=== PATIENT | male | born 1955 | race Caucasian/White ===

== ENCOUNTER 2019-09-24 17:16 | Inpatient (IN) | payer MEDICARE, MEDICAID ==
[2019-09-24 17:40] VITALS: BP 145/83
[2019-09-24] MEDS ORDERED: Maalox 30 mL Cup PO PRN (18:36)
[2019-09-24] MEDS ORDERED: Magnesium Hydroxide (MOM) 30 mL UDC PO PRN (18:36)
[2019-09-25] MEDS: Multivitamin Tab PO SCH (09:12)
--- NOTE | 2019-09-25 15:38 | History and Physical ---
History of Present Illness - HPI Chief Complaint: Suicida Ideation HPI: Admitted from [facility]. Admitted for Suicidal Ideation and 5150 Hold. Vital Signs: Last Vital Signs Temp 98.4 F 09/25/19 14:00 Pulse 88 09/25/19 14:00 Resp 20 09/25/19 14:00 BP 123/72 09/25/19 14:00 Pulse Ox 93 09/25/19 14:00 Past Medical History Cardiovascular: Report: CAD, HTN Pulmonary: Report: No Pertinent Hx [employer]: Report: Other (Parkinson) GI: Report: No Pertinent Hx Psych: Report: Depression Musculoskeletal: Report: No Pertinent Hx Rheumatologic: Report: No pertinent Hx Infectious Disease: Report: No Pertinent Hx Renal/: Report: No Pertinent Hx Endocrine: Report: No Pertinent Hx Dermatology: Report: No Pertinent Hx - Past Surgical History Past Surgical History: Other (PTCA) Family Medical History - Family Member Mother History Unknown: Yes Social History Smoke: 2 packs per day Alcohol: Other (Quit) Drugs: Other (Quit) Lives: With Family - Allergies Allergies/Adverse Reactions: Allergies Allergy/AdvReac Type Severity Reaction Status Date / Time No Known Allergies Allergy Unverified 09/24/19 17:41 Review of Systems - Review of Systems Constitutional: Report: No Significant Eyes: Report: No Significant ENT: Report: No Significant Respiratory: Report: No Significant Cardiovascular: Report: Chest Pain Gastrointestinal: Report: No Significant Genitourinary: Report: No Significant Musculoskeletal: Report: No Significant Skin: Report: No Significant Neurological: Report: Weakness Physical Exam - Physical Exam HEENT: Report: Ears Nose Throat within normal limits Neck: Report: Within normal limits Cardiovascular Systems: Report: Regular, Rate and Rhythm, no murmurs noted Respiratory: Report: Clear to Auscultation of lung oliveira, Breath Sounds are within normal limits Abdomen: Report: Non-tender to palpation, Bowel Sounds are within normal limits Back: Report: Inspection of back is within normal limits. Extremities: Report: Non-tender to palpation., Patient had full range of motion , No pedal edema was noted on inspection Skin: Report: Color of skin is within normal limits, Warm, Dry, No Rashes noted of the skin Neuro/Psych: Report: A+Ox3, CN II-XII intact, Depressed affect, No sensory deficit - Lab Results All Lab Results last 24 hours: Laboratory Results - last 24 hr 09/24/19 18:08 POC Glucose 98 - Assessment Assessment: Suicidal Ideation 5150 Hold HTN CAD Parkinson's S/P PTCA Tobacco Abuse H/O Alcohol Abuse' H/O Drug Abuse - Plan Plan: * Continue medications from [facility] * Obtain labs * Psych Consult Cranial Nerve Assessment - CRANIAL NERVES alcohol swab:: Yes Distinguishes movements in peripheral field.:: Yes up, down, sideways:: Yes on forehead, cheeks and chin, chews symmetrically:: Yes FACIAL VII: upper: Frowns Symmetrically:: Yes FACIAL VII: Lower: Smiles Symmetrically:: Yes both ears:: Yes GLOSS-PHARYNGEAL IX: Has gag reflex:: Yes VAGUS X: Can make guttural sounds:: Yes ACCESSORY XI: Shrugs shoulders symmetrically:: Yes tremors or fasciculation's:: Yes - MOTOR spasticity, cogwheel, atrophy, tremor, asterixis, other: Yes (Normal) - COORDINATION Finger to nose, heel to ohara, RODRIGO, gait, Romberg: Yes - SENSORY signs, Brudzinski, Kernig, neck rigidity:: Yes (Normal) - REFLEXES Brachioradials Right:: Yes Brachioradials Left:: Yes Biceps Right:: Yes Biceps Left:: Yes Triceps Right:: Yes Triceps Left:: Yes Knee Right:: Yes Knee Left:: Yes Ankle Right:: Yes Ankle Left:: Yes Babinski Right:: No Babinski Left:: No
--- NOTE | 2019-09-25 17:32 | Consultation ---
DATE OF CONSULTATION: 09/25/2019 IDENTIFYING DATA: A 64-year-old male. HISTORY OF PRESENT ILLNESS: A 64-year-old male brought in here on a 5150 for severe depression. He has been hearing voices telling him to run into traffic. He reports noncompliance of medications, recently stressors upon the pandemic, become homeless, unable to find a safe place. He has been depressed and sleeping with thought about hurting himself. PAST MEDICAL HISTORY: Hypertension, Parkinson's. SIGNIFICANT FAMILY PSYCHIATRIC HISTORY: None. SOCIAL HISTORY: Reports occasional alcohol, street drugs, but does not report any recent drug use. ALLERGIES TO MEDICATIONS: NKDA. HOME MEDICATIONS: None. ONSET OF ILLNESS: Early 20s. LEGAL HISTORY: Denied. STRENGTHS: Good motivation. WEAKNESSES: Poor coping skills. ESTIMATED LENGTH OF STAY: Between 5-10 days. MENTAL STATUS EXAMINATION: Calm and cooperative, depressed, melancholic with suicidal ideation to monitor traffic, auditory hallucinations to hurt himself. LABS: Reviewed. Poor insight, poor judgment, poor impulse control. U-tox negative. ASSESSMENT AND PLAN: Major depressive disorder with psychosis severe, distraught throughout the traffic. We will augment with Lexapro and Abilify. PRIMARY DIAGNOSIS: Major depressive disorder with psychosis. SECONDARY DIAGNOSIS: History of substance use disorder. MEDICAL DIAGNOSIS: Per medical team. PLAN: 1. Continue with hospitalization. 2. Start Lexapro. 3. Continue with the Abilify. 4. Both individual and group therapy. 5. Obtain more collateral baseline information. JOB# [id number]
[2019-09-25] MEDS: Escitalopram Oxalate 5 mg Tab PO SCH (21:08)
[2019-09-26] MEDS: Multivitamin Tab PO SCH (08:39)
--- NOTE | 2019-09-26 15:23 | Progress Notes ---
DATE: 09/26/2019 SUBJECTIVE: On [id number] evaluation, tearful and pushing to hurt himself. MENTAL STATUS EXAMINATION: Tearful, command type auditory hallucinations. ASSESSMENT AND PLAN: Major depressive disorder with psychosis. We will continue with the recent augmentation of Abilify 10 mg. [facility]# [id number]
[2019-09-26] MEDS: Escitalopram Oxalate 5 mg Tab PO SCH (20:08)
[2019-09-27] MEDS: Multivitamin Tab PO SCH (08:37)
--- NOTE | 2019-09-27 14:50 | Internal Medicine Prog Note ---
Internal Medicine Subjective - Subjective Service Date: 09/27/19 Patient seen and examined:: without staff Patient is:: awake Per staff patient has:: no adverse event, no episodes of fall (f) Internal Medicine Objective - Results Recent Labs: Laboratory Last Values POC Glucose 98 MG/DL (70 - 105) 09/24/19 18:08 - Physical Exam Vitals and I&O: Vital Signs Temp 97.9 F 09/26/19 20:14 Pulse 98 09/26/19 20:14 Resp 20 09/26/19 20:14 BP 156/80 09/26/19 20:14 Pulse Ox 95 09/26/19 20:14 Intake & Output 09/26/19 09/27/19 09/27/19 18:59 06:59 18:59 Intake Total 1200 240 Balance 1200 240 Intake: Oral 1200 240 Other: # Voids 4 1 # Bowel Movements 1 Active Medications: Current Medications Acetaminophen (Tylenol) 650 mg PO Q4H PRN PRN Reason: Pain (Mild 1-3) Stop: 11/23/19 18:35 Last Admin: 09/27/19 11:12 Dose: 650 mg Al Hydrox/Mg Hydrox/Simethicone (Maalox) 30 ml PO Q4HR PRN PRN Reason: GI DISTRESS Stop: 11/23/19 18:35 Aripiprazole (Abilify) 10 mg PO HS FLO; Protocol Stop: 11/25/19 20:59 Last Admin: 09/26/19 20:08 Dose: 10 mg Escitalopram Oxalate (Lexapro) 10 mg PO HS FLO; Protocol Stop: 11/26/19 20:59 Lorazepam (Ativan) 0.5 mg PO Q4HR PRN; Protocol PRN Reason: Agitation Stop: 10/24/19 18:35 Magnesium Hydroxide (Milk Of Magnesia) 30 ml PO HS PRN PRN Reason: Constipation Multivitamins/Vitamin C (Theragran) 1 tab PO DAILY FLO Stop: 11/24/19 08:59 Last Admin: 09/27/19 08:37 Dose: 1 tab Zolpidem Tartrate (Ambien) 5 mg PO HS PRN PRN Reason: Insomnia Stop: 11/23/19 20:02 Last Admin: 09/26/19 21:00 Dose: 5 mg HEENT: NC/AT, PERRLA Neck: Supple Lungs: CTAB Cardiovascular: RRR, Normal S1, Normal S2 Abdomen: soft Extremities: clear, edema Neurological: no change Internal Medicine Assmt/Plan - Assessment Assessment: 1. CAD Hx of PTCA 2. Parkinson's 3. HTN - Plan Plan: continue supportive care continue meds reviewed medical records and discussed with Bárbara
--- NOTE | 2019-09-28 04:11 | Progress Notes ---
DATE: 09/27/2019 SUBJECTIVE: Chart reviewed and the patient interviewed. Also discussed the patient's condition with the staff and reviewed records and labs. This patient still has episodes of anger and yelling and screaming. The patient also is focused on medications and on his having hypertension. The patient also is still reporting auditory hallucinations telling him to run into traffic. He also still seems to be in a depressed mood and periods of decreased yelling and screaming. The patient's gait is steady. Vital signs are stable and no new labs are available for review. MENTAL STATUS EXAMINATION: Anxious. Sad affect. Depressed mood. Thought processes mainly goal directed. He denies visual hallucinations, but admits to auditory hallucinations. Admits to suicidal ideations. ASSESSMENT: The patient is still depressed and psychotic. TREATMENT PLAN: Continue to monitor his behavior and his condition closely. Also, we will decrease Lexapro to 10 mg every day and continue Abilify 10 mg at this time. Also, continue to work on his irritability and his ineffective coping. ESTIMATED LENGTH OF STAY: 2-4 days. REASON FOR CONTINUED HOSPITAL STAY: The patient is still in a depressed mood and is still actively hallucinating and can be dangerous to self. JOB# [id number]
[2019-09-28] MEDS: Multivitamin Tab PO SCH (08:56)
--- NOTE | 2019-09-28 11:47 | Internal Medicine Prog Note ---
Internal Medicine Subjective - Subjective Service Date: 09/28/19 Patient seen and examined:: without staff Patient is:: awake Per staff patient has:: no adverse event, no episodes of fall (f) Internal Medicine Objective - Results Recent Labs: Laboratory Last Values POC Glucose 98 MG/DL (70 - 105) 09/24/19 18:08 - Physical Exam Vitals and I&O: Vital Signs Temp 97.9 F 09/26/19 20:14 Pulse 80 09/27/19 20:06 Resp 20 09/27/19 20:06 BP 132/93 09/27/19 20:06 Pulse Ox 95 09/27/19 20:06 Intake & Output 09/27/19 09/28/19 09/28/19 18:59 06:59 18:59 Intake Total 1200 420 Balance 1200 420 Intake: Oral 960 420 Other 240 Other: # Voids 3 1 # Bowel Movements 0 0 Active Medications: Current Medications Acetaminophen (Tylenol) 650 mg PO Q4H PRN PRN Reason: Pain (Mild 1-3) Stop: 11/23/19 18:35 Last Admin: 09/28/19 09:49 Dose: 650 mg Al Hydrox/Mg Hydrox/Simethicone (Maalox) 30 ml PO Q4HR PRN PRN Reason: GI DISTRESS Stop: 11/23/19 18:35 Aripiprazole (Abilify) 10 mg PO HS FLO; Protocol Stop: 11/25/19 20:59 Last Admin: 09/27/19 20:16 Dose: 10 mg Aripiprazole (Abilify) 5 mg PO DAILY FLO; Protocol Stop: 11/27/19 08:59 Last Admin: 09/28/19 08:56 Dose: 5 mg Escitalopram Oxalate (Lexapro) 10 mg PO HS FLO; Protocol Stop: 11/26/19 20:59 Last Admin: 09/27/19 20:15 Dose: 10 mg Lorazepam (Ativan) 0.5 mg PO Q4HR PRN; Protocol PRN Reason: Agitation Stop: 10/24/19 18:35 Last Admin: 09/27/19 16:24 Dose: 0.5 mg Magnesium Hydroxide (Milk Of Magnesia) 30 ml PO HS PRN PRN Reason: Constipation Multivitamins/Vitamin C (Theragran) 1 tab PO DAILY FLO Stop: 11/24/19 08:59 Last Admin: 09/28/19 08:56 Dose: 1 tab Zolpidem Tartrate (Ambien) 5 mg PO HS PRN PRN Reason: Insomnia Stop: 11/23/19 20:02 Last Admin: 09/27/19 23:00 Dose: 5 mg HEENT: NC/AT, PERRLA Neck: Supple Lungs: CTAB Cardiovascular: RRR, Normal S1, Normal S2 Abdomen: soft Extremities: clear, edema Neurological: no change Internal Medicine Assmt/Plan - Assessment Assessment: 1. CAD Hx of PTCA 2. Parkinson's 3. HTN - Plan Plan: continue supportive care continue meds reviewed medical records and discussed with Bárbara
--- NOTE | 2019-09-28 16:41 | Progress Notes ---
DATE: SUBJECTIVE: Chart was reviewed and the patient interviewed. Also discussed the patient's condition with the staff and reviewed records and labs. The patient was complaining of cold room, but at the same time when they tried to move him to a different room, he refused. The patient also was severely angry last night for unknown reason. He also is histrionic and he told nursing staff last night "I am not going to in front of you." He is still asking for more pain medications and still wants to have more pain medicine. The patient also is still having severe mood swings and easily irritable and easily agitated. He also is still complaining of pain in his left knee and asking me for more pain medications for his knee. Otherwise, the patient is taking current medications with no problems. OBJECTIVE: Gait is steady. Vital signs are stable. No new labs available for review. MENTAL STATUS EXAMINATION: Anxious. Depressed mood. Irritable at times. Denies any hallucinations or delusions. The patient seems to be preoccupied and anxious. He is also easily irritable and easily agitated. ASSESSMENT: The patient is still in irritable and angry mood. TREATMENT PLAN: We will increase Abilify to 5 mg in the morning and 10 mg at bedtime. Also, continue working on his irritability and behavioral modification. ESTIMATED LENGTH OF STAY: 4-6 days. REASON FOR CONTINUED HOSPITAL STAY: The patient is still in irritable mood and still needs close monitoring. JOB# [id number]
--- NOTE | 2019-09-29 07:56 | Progress Notes ---
DATE: 09/29/2019 SUBJECTIVE: Chart was reviewed and the patient interviewed. Also discussed the patient's condition with the staff and reviewed records and labs. The patient still have episodes of anger and irritability and resisting care. The patient also told staff that he is not taking any more psych medicine; although, he did take his Abilify and Lexapro. He is still having mood swings and still has periods of irritability and anger. Also, still seems to be actively responding. The patient also is still histrionic and has multiple somatic complaints at times. Gait is steady. Vital signs are stable and no new labs available for review. MENTAL STATUS EXAMINATION: Anxious. Depressed. Irritable mood. Disorganized thoughts. ASSESSMENT: The patient is still depressed and still needs close monitoring. TREATMENT PLAN: Continue to monitor his behavior and his condition closely. Also, continue Abilify that was increased total 50 mg every day and continue Lexapro and followup. JOB# [id number]
[2019-09-29] MEDS: Multivitamin Tab PO SCH (08:27)
--- NOTE | 2019-09-29 17:32 | Internal Medicine Prog Note ---
Internal Medicine Subjective - Subjective Service Date: 09/29/19 Patient is:: awake Per staff patient has:: no adverse event, no episodes of fall (f) Internal Medicine Objective - Results Recent Labs: Laboratory Last Values POC Glucose 98 MG/DL (70 - 105) 09/24/19 18:08 - Physical Exam Vitals and I&O: Vital Signs Temp 97.6 F 09/29/19 14:00 Pulse 88 09/29/19 14:00 Resp 20 09/29/19 14:00 BP 124/67 09/29/19 14:00 Pulse Ox 96 09/29/19 14:00 Intake & Output 09/28/19 09/29/19 09/29/19 18:59 06:59 18:59 Intake Total 1200 120 Balance 1200 120 Intake: Oral 1200 120 Other: # Voids 4 1 # Bowel Movements 1 0 Active Medications: Current Medications Acetaminophen (Tylenol) 650 mg PO Q4H PRN PRN Reason: Pain (Mild 1-3) Stop: 11/23/19 18:35 Last Admin: 09/29/19 16:47 Dose: 650 mg Al Hydrox/Mg Hydrox/Simethicone (Maalox) 30 ml PO Q4HR PRN PRN Reason: GI DISTRESS Stop: 11/23/19 18:35 Aripiprazole (Abilify) 10 mg PO HS FLO; Protocol Stop: 11/25/19 20:59 Last Admin: 09/28/19 20:41 Dose: 10 mg Aripiprazole (Abilify) 5 mg PO DAILY FLO; Protocol Stop: 11/27/19 08:59 Last Admin: 09/29/19 08:27 Dose: 5 mg Escitalopram Oxalate (Lexapro) 10 mg PO HS FLO; Protocol Stop: 11/26/19 20:59 Last Admin: 09/28/19 20:42 Dose: 10 mg Lorazepam (Ativan) 0.5 mg PO Q4HR PRN; Protocol PRN Reason: Agitation Stop: 10/24/19 18:35 Last Admin: 09/27/19 16:24 Dose: 0.5 mg Magnesium Hydroxide (Milk Of Magnesia) 30 ml PO HS PRN PRN Reason: Constipation Multivitamins/Vitamin C (Theragran) 1 tab PO DAILY FLO Stop: 11/24/19 08:59 Last Admin: 09/29/19 08:27 Dose: 1 tab Zolpidem Tartrate (Ambien) 5 mg PO HS PRN PRN Reason: Insomnia Stop: 11/23/19 20:02 Last Admin: 09/28/19 21:13 Dose: 5 mg HEENT: NC/AT, PERRLA Neck: Supple Lungs: CTAB Cardiovascular: RRR, Normal S1, Normal S2 Abdomen: soft Extremities: clear, edema Neurological: no change Internal Medicine Assmt/Plan - Assessment Assessment: 1. CAD Hx of PTCA 2. Parkinson's 3. HTN - Plan Plan: continue supportive care continue meds reviewed medical records and discussed with Bárbara Nutritional Asmnt/Malnutr-PDOC - Dietary Evaluation Malnutrition Findings (Please click <Entered> for more info): Nutritional Asmnt/Malnutrition Start: 09/28/19 11: 23 Text: Status: Complete Freq: Protocol: Document 09/28/19 13:49 MARIA A (Rec: 09/28/19 14:00 MARIA A [id number] [id number]) Nutritional Asmnt/Malnutrition Patient General Information Nutritional Screening Low Risk Diagnosis Psychosis Pertinent Medical Hx/Surgical Hx HTN, CAD, Parkinsons Subjective Information Pt is a 64-year-old male admitted on 09/23 d/t suicidal ideation. Pt is eating an estimated 88% x3days of meals Per Meal/Nutrition Activity Record. Dietary is currently providing an estimated 1900 kcals and 112 gm Pro, per Pt PO intake this is providing an estimated 1672 kcals and 98gm Pro to meet 88% kcal and 100+ % Pro needs- adequate. Visited pt in room, gathered food preferences. Anthropometrics HT: 59 WT: 189 LB (85.9 kg) BMI: 27.91 (Overweight) ABW: 167 LB (76 kg) GI/ Skin Integrity GI: WNL, Soft, Non-tender BM: 6/7 x1 I/O: 1620/Not Noted Skin: WNL, Intact Nito: 22 Diet Order: Cardiac Estimated Energy Needs: ( Geriatric, ABW) 2166-9959 kcals (25-30 kcals/ kg) 80-90 g Pro (1.0-1.2 g/kg) 4123-8059 ml (25-30 ml/kg) Current Diet Order/ Nutrition Support Cardiac Patient / S.O Can Pertinent Medications Maalox (PRN), MOM (PRN), Theragran Pertinent Labs 09/23: POC Glucose 98 09/22: K 3.5, Glucose 107, Ca 8. 0, AST 56, Hgb/Hct 10.1/31.8 Nutritional Hx/Data Height 1.75 m Height (Calculated Centimeters) 175.3 Current Weight (lbs) 85.729 kg Weight (Calculated Kilograms) 85.7 Weight (Calculated Grams) 89177.0 [place] Body Weight 160 % [place] Body Weight 118 Body Mass Index (BMI) 27.8 Weight Status Overweight GI Symptoms GI Symptoms None Last BM 09/25 x1 Difficult in: None Skin Integrity/Comment: WNL, Intact Current %PO Good (75-100%) Estimated Nutritional Goals BEE in Kcals: Adj wt of IBW Calories/Kcals/Kg 25-30 Kcals Calculated 9411-0869 Protein: Adj wt of IBW Protein g/k.0-1.2 Protein Calculated 80-90 Fluid: ml 8892-5515 ml (25-30 ml/kg) Nutritional Problem 1. Problem Problem No nutrition diagnosis at this time. Etiology N/A Signs/Symptoms: N/A Malnutrition Related to Morbid Obesity Malnutrition related to morbid obesity No Intervention/Recommendation Comments Continue Cardiac diet as tolerated. Expected Outcomes/Goals Expected Outcomes/Goals 1. PO intake to continue to meet >75% of estimated nutritional needs. 2. Monitor PO intake, wt, nutrition related labs, and skin integrity. 3. F/U as low risk in 7-10 days, 10/04-10/07.
[2019-09-30] MEDS: Multivitamin Tab PO SCH (08:32)
--- NOTE | 2019-09-30 09:08 | Progress Notes ---
DATE: SUBJECTIVE: Chart reviewed and the patient interviewed. Also discussed the patient's condition with the staff and reviewed records and labs. The patient seems to be slightly calmer this morning and he seems to be less irritable and less agitated. Also, is trying to interact slightly more. He still has mood swings and still has periods of anger, but seems to be slightly less today and for the first time the patient is showing some improvement. Otherwise, the patient is compliant with taking his medications with no side effects of medications. ASSESSMENT: The patient still has episodes of irritability and agitation. TREATMENT PLAN: Continue to monitor behavior and condition closely. Also, continue to work on his restlessness and anger and continue to follow up. JOB# [id number]
--- NOTE | 2019-09-30 17:44 | Internal Medicine Prog Note ---
Internal Medicine Subjective - Subjective Service Date: 09/30/19 Patient seen and examined:: without staff Patient is:: awake Per staff patient has:: no adverse event, no episodes of fall (f) Internal Medicine Objective - Results Recent Labs: Laboratory Last Values POC Glucose 98 MG/DL (70 - 105) 09/24/19 18:08 - Physical Exam Vitals and I&O: Vital Signs Temp 97.9 F 09/30/19 14:00 Pulse 68 09/30/19 14:00 Resp 20 09/30/19 14:00 BP 138/78 09/30/19 14:00 Pulse Ox 98 09/30/19 14:00 Intake & Output 09/29/19 09/30/19 09/30/19 18:59 06:59 18:59 Intake Total 1200 240 Balance 1200 240 Intake: Oral 1200 240 Other: # Voids 2 # Bowel Movements 0 Active Medications: Current Medications Acetaminophen (Tylenol) 650 mg PO Q4H PRN PRN Reason: Pain (Mild 1-3) Stop: 11/23/19 18:35 Last Admin: 09/30/19 14:36 Dose: 650 mg Al Hydrox/Mg Hydrox/Simethicone (Maalox) 30 ml PO Q4HR PRN PRN Reason: GI DISTRESS Stop: 11/23/19 18:35 Aripiprazole (Abilify) 10 mg PO HS FLO; Protocol Stop: 11/25/19 20:59 Last Admin: 09/29/19 21:14 Dose: 10 mg Aripiprazole (Abilify) 5 mg PO DAILY FLO; Protocol Stop: 11/27/19 08:59 Last Admin: 09/30/19 08:32 Dose: 5 mg Escitalopram Oxalate (Lexapro) 10 mg PO HS FLO; Protocol Stop: 11/26/19 20:59 Last Admin: 09/29/19 21:14 Dose: 10 mg Lorazepam (Ativan) 0.5 mg PO Q4HR PRN; Protocol PRN Reason: Agitation Stop: 10/24/19 18:35 Last Admin: 09/30/19 16:29 Dose: 0.5 mg Magnesium Hydroxide (Milk Of Magnesia) 30 ml PO HS PRN PRN Reason: Constipation Multivitamins/Vitamin C (Theragran) 1 tab PO DAILY FLO Stop: 11/24/19 08:59 Last Admin: 09/30/19 08:32 Dose: 1 tab Zolpidem Tartrate (Ambien) 5 mg PO HS PRN PRN Reason: Insomnia Stop: 11/23/19 20:02 Last Admin: 09/29/19 22:02 Dose: 5 mg HEENT: NC/AT, PERRLA Neck: Supple Lungs: CTAB Cardiovascular: RRR, Normal S1, Normal S2 Abdomen: soft Extremities: clear, edema Neurological: no change Internal Medicine Assmt/Plan - Assessment Assessment: 1. CAD Hx of PTCA 2. Parkinson's 3. HTN - Plan Plan: continue supportive care continue meds reviewed medical records and discussed with RDexter Nutritional Asmnt/Malnutr-PDOC - Dietary Evaluation Malnutrition Findings (Please click <Entered> for more info): Nutritional Asmnt/Malnutrition Start: 09/28/19 11: 23 Text: Status: Complete Freq: Protocol: Document 09/28/19 13:49 MARIA A (Rec: 09/28/19 14:00 MARIA A [id number]) Nutritional Asmnt/Malnutrition Patient General Information Nutritional Screening Low Risk Diagnosis Psychosis Pertinent Medical Hx/Surgical Hx HTN, CAD, Parkinsons Subjective Information Pt is a 64-year-old male admitted on 09/23 d/t suicidal ideation. Pt is eating an estimated 88% x3days of meals Per Meal/Nutrition Activity Record. Dietary is currently providing an estimated 1900 kcals and 112 gm Pro, per Pt PO intake this is providing an estimated 1672 kcals and 98gm Pro to meet 88% kcal and 100+ % Pro needs- adequate. Visited pt in room, gathered food preferences. Anthropometrics HT: 59 WT: 189 LB (85.9 kg) BMI: 27.91 (Overweight) ABW: 167 LB (76 kg) GI/ Skin Integrity GI: WNL, Soft, Non-tender BM: 6/7 x1 I/O: 1620/Not Noted Skin: WNL, Intact Nito: 22 Diet Order: Cardiac Estimated Energy Needs: ( Geriatric, ABW) 6281-0537 kcals (25-30 kcals/ kg) 80-90 g Pro (1.0-1.2 g/kg) 7075-2840 ml (25-30 ml/kg) Current Diet Order/ Nutrition Support Cardiac Patient / S.O Can Pertinent Medications Maalox (PRN), MOM (PRN), Theragran Pertinent Labs 09/23: POC Glucose 98 09/22: K 3.5, Glucose 107, Ca 8. 0, AST 56, Hgb/Hct 10.1/31.8 Nutritional Hx/Data Height 1.75 m Height (Calculated Centimeters) 175.3 Current Weight (lbs) 85.729 kg Weight (Calculated Kilograms) 85.7 Weight (Calculated Grams) 47627.0 [place] Body Weight 160 % [place] Body Weight 118 Body Mass Index (BMI) 27.8 Weight Status Overweight GI Symptoms GI Symptoms None Last BM 09/25 x1 Difficult in: None Skin Integrity/Comment: WNL, Intact Current %PO Good (75-100%) Estimated Nutritional Goals BEE in Kcals: Adj wt of IBW Calories/Kcals/Kg 25-30 Kcals Calculated 8091-1963 Protein: Adj wt of IBW Protein g/k.0-1.2 Protein Calculated 80-90 Fluid: ml 7007-0484 ml (25-30 ml/kg) Nutritional Problem 1. Problem Problem No nutrition diagnosis at this time. Etiology N/A Signs/Symptoms: N/A Malnutrition Related to Morbid Obesity Malnutrition related to morbid obesity No Intervention/Recommendation Comments Continue Cardiac diet as tolerated. Expected Outcomes/Goals Expected Outcomes/Goals 1. PO intake to continue to meet >75% of estimated nutritional needs. 2. Monitor PO intake, wt, nutrition related labs, and skin integrity. 3. F/U as low risk in 7-10 days, 10/04-10/07.
[2019-10-01] MEDS: Multivitamin Tab PO SCH (08:30)
--- NOTE | 2019-10-01 12:40 | Internal Medicine Prog Note ---
Internal Medicine Subjective - Subjective Service Date: 10/01/19 Patient seen and examined:: without staff Patient is:: awake Per staff patient has:: no adverse event, no episodes of fall (f) Internal Medicine Objective - Results Recent Labs: Laboratory Last Values POC Glucose 98 MG/DL (70 - 105) 09/24/19 18:08 - Physical Exam Vitals and I&O: Vital Signs Temp 97.9 F 09/30/19 14:00 Pulse 63 09/30/19 22:18 Resp 18 09/30/19 22:18 BP 140/75 09/30/19 22:18 Pulse Ox 96 09/30/19 22:18 Intake & Output 09/30/19 10/01/19 10/01/19 18:59 06:59 18:59 Intake Total 1200 240 Balance 1200 240 Intake: Oral 1200 240 Other: # Voids 4 2 # Bowel Movements 1 0 Active Medications: Current Medications Acetaminophen (Tylenol) 650 mg PO Q4H PRN PRN Reason: Pain (Mild 1-3) Stop: 11/23/19 18:35 Last Admin: 09/30/19 14:36 Dose: 650 mg Al Hydrox/Mg Hydrox/Simethicone (Maalox) 30 ml PO Q4HR PRN PRN Reason: GI DISTRESS Stop: 11/23/19 18:35 Aripiprazole (Abilify) 10 mg PO HS FLO; Protocol Stop: 11/25/19 20:59 Last Admin: 09/30/19 20:19 Dose: 10 mg Aripiprazole (Abilify) 10 mg PO DAILY FLO; Protocol Stop: 11/30/19 08:59 Last Admin: 10/01/19 08:30 Dose: 10 mg Escitalopram Oxalate (Lexapro) 10 mg PO HS FLO; Protocol Stop: 11/26/19 20:59 Last Admin: 09/30/19 20:18 Dose: 10 mg Lorazepam (Ativan) 0.5 mg PO Q4HR PRN; Protocol PRN Reason: Agitation Stop: 10/24/19 18:35 Last Admin: 09/30/19 16:29 Dose: 0.5 mg Magnesium Hydroxide (Milk Of Magnesia) 30 ml PO HS PRN PRN Reason: Constipation Multivitamins/Vitamin C (Theragran) 1 tab PO DAILY FLO Stop: 11/24/19 08:59 Last Admin: 10/01/19 08:30 Dose: 1 tab Zolpidem Tartrate (Ambien) 5 mg PO HS PRN PRN Reason: Insomnia Stop: 11/23/19 20:02 Last Admin: 09/29/19 22:02 Dose: 5 mg HEENT: NC/AT, PERRLA Neck: Supple Lungs: CTAB Cardiovascular: RRR, Normal S1, Normal S2 Abdomen: soft Extremities: clear, edema Neurological: no change Internal Medicine Assmt/Plan - Assessment Assessment: 1. CAD Hx of PTCA 2. Parkinson's 3. HTN - Plan Plan: continue supportive care continue meds reviewed medical records and discussed with Bárbara Nutritional Asmnt/Malnutr-PDOC - Dietary Evaluation Malnutrition Findings (Please click <Entered> for more info): Nutritional Asmnt/Malnutrition Start: 09/28/19 11: 23 Text: Status: Complete Freq: Protocol: Document 09/28/19 13:49 MARIA A (Rec: 09/28/19 14:00 MARIA A [id number] -[id number]) Nutritional Asmnt/Malnutrition Patient General Information Nutritional Screening Low Risk Diagnosis Psychosis Pertinent Medical Hx/Surgical Hx HTN, CAD, Parkinsons Subjective Information Pt is a 64-year-old male admitted on 09/23 d/t suicidal ideation. Pt is eating an estimated 88% x3days of meals Per Meal/Nutrition Activity Record. Dietary is currently providing an estimated 1900 kcals and 112 gm Pro, per Pt PO intake this is providing an estimated 1672 kcals and 98gm Pro to meet 88% kcal and 100+ % Pro needs- adequate. Visited pt in room, gathered food preferences. Anthropometrics HT: 59 WT: 189 LB (85.9 kg) BMI: 27.91 (Overweight) ABW: 167 LB (76 kg) GI/ Skin Integrity GI: WNL, Soft, Non-tender BM: 6/7 x1 I/O: 1620/Not Noted Skin: WNL, Intact Nito: 22 Diet Order: Cardiac Estimated Energy Needs: ( Geriatric, ABW) 5702-8751 kcals (25-30 kcals/ kg) 80-90 g Pro (1.0-1.2 g/kg) 8201-7062 ml (25-30 ml/kg) Current Diet Order/ Nutrition Support Cardiac Patient / S.O Can Pertinent Medications Maalox (PRN), MOM (PRN), Theragran Pertinent Labs 09/23: POC Glucose 98 09/22: K 3.5, Glucose 107, Ca 8. 0, AST 56, Hgb/Hct 10.1/31.8 Nutritional Hx/Data Height 1.75 m Height (Calculated Centimeters) 175.3 Current Weight (lbs) 85.729 kg Weight (Calculated Kilograms) 85.7 Weight (Calculated Grams) 87507.0 [place] Body Weight 160 % [place] Body Weight 118 Body Mass Index (BMI) 27.8 Weight Status Overweight GI Symptoms GI Symptoms None Last BM 09/25 x1 Difficult in: None Skin Integrity/Comment: WNL, Intact Current %PO Good (75-100%) Estimated Nutritional Goals BEE in Kcals: Adj wt of IBW Calories/Kcals/Kg 25-30 Kcals Calculated 1487-1865 Protein: Adj wt of IBW Protein g/k.0-1.2 Protein Calculated 80-90 Fluid: ml 8483-1935 ml (25-30 ml/kg) Nutritional Problem 1. Problem Problem No nutrition diagnosis at this time. Etiology N/A Signs/Symptoms: N/A Malnutrition Related to Morbid Obesity Malnutrition related to morbid obesity No Intervention/Recommendation Comments Continue Cardiac diet as tolerated. Expected Outcomes/Goals Expected Outcomes/Goals 1. PO intake to continue to meet >75% of estimated nutritional needs. 2. Monitor PO intake, wt, nutrition related labs, and skin integrity. 3. F/U as low risk in 7-10 days, 10/04-10/07.
--- NOTE | 2019-10-01 17:06 | Progress Notes ---
DATE: 10/01/2019 SUBJECTIVE: Chart reviewed and the patient interviewed. Also discussed the patient's condition with the staff and reviewed records and labs. The patient slept better, but he still have mood swings and still easily irritable and easily agitated. The patient also is still guarded and interacting minimally with others. The patient denies any suicidal ideations, but he is still assist in angry and in irritable mood. MENTAL STATUS EXAMINATION: Anxious. Labile affect. Disorganized thoughts. ASSESSMENT: The patient is still depressed and still has mood swings. TREATMENT PLAN: We will increase Abilify to 10 mg twice a day and continue Lexapro 10 mg at bedtime. Also, continue to work on his ineffective coping and his irritability. ESTIMATED LENGTH OF STAY: 2-4 days. REASON TO CONTINUE HOSPITAL STAY: The patient is still in irritable mood and still needs redirections. [facility]# [id number]
--- NOTE | 2019-10-02 01:22 | Progress Notes ---
DATE: SUBJECTIVE: Chart was reviewed and the patient interviewed. Dictation Ends Here JOB# [id number]
--- NOTE | 2019-10-02 06:47 | Progress Notes ---
DATE: 10/02/2019 SUBJECTIVE: A 64-year-old male brought in on a hold for depression, hearing voices telling him to run into traffic, poor medication compliance, stresses about the pandemic apparently, [id number] go to see the patient, unfortunately is not very amenable to interview per staff. Fair orientation. Noted to be stating "go away," wanting to be left alone. I tried to talk to him, but he does not want to engage, isolative, withdrawn, poorly interaction with peers and other staff, still mostly withdrawn, anxious, appears very anxious on exam per staff, easily agitated, currently on dosing of Lexapro, also Abilify. Medications were reviewed. Labs reviewed. Vitals were reviewed. Blood pressure 148/83, pulse of 58. ASSESSMENT: A 64-year-old male, still down, withdrawn, depressed, agitated, easily irritable, concerns really for his ability to care for his basic needs, given his homeless, mostly withdrawn, needs lot of prompting. PLAN: We will continue inpatient monitoring. We will likely need a structured setting upon discharge. JOB# [id number]
[2019-10-02] MEDS: Multivitamin Tab PO SCH (09:08)
[2019-10-02] MEDS ORDERED: Hydrocodone/APAP 10 mg/325 mg Tab PO PRN (15:13)
[2019-10-02] MEDS ORDERED: Hydrocodone/APAP 5mg/325mg Tab PO PRN (15:13)
--- NOTE | 2019-10-02 15:13 | General Progress Note ---
Subjective - Review of Systems Service Date: 10/02/19 Subjective: * Patient complains of chest pain * Nursing staff concerned about elevated BP * Patient requesting patch for smoking * Patient smoke 2 pack per day * Patient requesting medication for left knee pain Objective - Results Recent Labs: Laboratory Last Values POC Glucose 98 MG/DL (70 - 105) 09/24/19 18:08 - Physical Exam Vitals and I&O: Vital Signs Temp 97.6 F 10/01/19 14:00 Pulse 58 10/01/19 14:00 Resp 20 10/01/19 14:00 BP 148/83 10/01/19 14:00 Pulse Ox 98 10/01/19 14:00 Intake & Output 10/01/19 10/02/19 10/02/19 18:59 06:59 18:59 Intake Total 1200 Balance 1200 Intake: Oral 1200 Other: # Voids 3 # Bowel Movements 0 Active Medications: Current Medications Acetaminophen (Tylenol) 650 mg PO Q4H PRN PRN Reason: Pain (Mild 1-3) Stop: 11/23/19 18:35 Last Admin: 10/01/19 15:22 Dose: 650 mg Al Hydrox/Mg Hydrox/Simethicone (Maalox) 30 ml PO Q4HR PRN PRN Reason: GI DISTRESS Stop: 11/23/19 18:35 Aripiprazole (Abilify) 10 mg PO HS FLO; Protocol Stop: 11/25/19 20:59 Last Admin: 10/01/19 21:01 Dose: Not Given Aripiprazole (Abilify) 10 mg PO DAILY FLO; Protocol Stop: 11/30/19 08:59 Last Admin: 10/02/19 09:10 Dose: 10 mg Escitalopram Oxalate (Lexapro) 10 mg PO HS FLO; Protocol Stop: 11/26/19 20:59 Last Admin: 10/01/19 21:01 Dose: 10 mg Lorazepam (Ativan) 0.5 mg PO Q4HR PRN; Protocol PRN Reason: Agitation Stop: 10/24/19 18:35 Last Admin: 09/30/19 16:29 Dose: 0.5 mg Magnesium Hydroxide (Milk Of Magnesia) 30 ml PO HS PRN PRN Reason: Constipation Multivitamins/Vitamin C (Theragran) 1 tab PO DAILY FLO Stop: 11/24/19 08:59 Last Admin: 10/02/19 09:08 Dose: 1 tab Zolpidem Tartrate (Ambien) 5 mg PO HS PRN PRN Reason: Insomnia Stop: 11/23/19 20:02 Last Admin: 09/29/19 22:02 Dose: 5 mg General: Alert, No acute distress Cardiovascular: Regular rate, Normal S1, Normal S2 Lungs: Clear to auscultation Abdomen: Bowel sounds, Soft Extremities: Tender (Left Knee) Assessment/Plan - Assessment Assessment: Suicidal Ideation 5150 Hold HTN CAD Parkinson's S/P PTCA Tobacco Abuse H/O Alcohol Abuse' H/O Drug Abuse Chest Pain Left Knee Pain - Plan Plan: * Continue current management * Start patient on HCTZ for HTN * Start patient on Tylenol and NSAIDs for joint pain * Opiods if needed for sever pain * ASA regimen Nutritional Asmnt/Malnutr-PDOC - Dietary Evaluation Malnutrition Findings (Please click <Entered> for more info): Nutritional Asmnt/Malnutrition Start: 09/28/19 11: 23 Text: Status: Complete Freq: Protocol: Document 09/28/19 13:49 MARIA A (Rec: 09/28/19 14:00 MARIA A GISSEL-CTXTS -[id number]) Nutritional Asmnt/Malnutrition Patient General Information Nutritional Screening Low Risk Diagnosis Psychosis Pertinent Medical Hx/Surgical Hx HTN, CAD, Parkinsons Subjective Information Pt is a 64-year-old male admitted on 09/23 d/t suicidal ideation. Pt is eating an estimated 88% x3days of meals Per Meal/Nutrition Activity Record. Dietary is currently providing an estimated 1900 kcals and 112 gm Pro, per Pt PO intake this is providing an estimated 1672 kcals and 98gm Pro to meet 88% kcal and 100+ % Pro needs- adequate. Visited pt in room, gathered food preferences. Anthropometrics HT: 59 WT: 189 LB (85.9 kg) BMI: 27.91 (Overweight) ABW: 167 LB (76 kg) GI/ Skin Integrity GI: WNL, Soft, Non-tender BM: 6/7 x1 I/O: 1620/Not Noted Skin: WNL, Intact Nito: 22 Diet Order: Cardiac Estimated Energy Needs: ( Geriatric, ABW) 1823-4479 kcals (25-30 kcals/ kg) 80-90 g Pro (1.0-1.2 g/kg) 0001-5808 ml (25-30 ml/kg) Current Diet Order/ Nutrition Support Cardiac Patient / S.O Can Pertinent Medications Maalox (PRN), MOM (PRN), Theragran Pertinent Labs 09/23: POC Glucose 98 09/22: K 3.5, Glucose 107, Ca 8. 0, AST 56, Hgb/Hct 10.1/31.8 Nutritional Hx/Data Height 1.75 m Height (Calculated Centimeters) 175.3 Current Weight (lbs) 85.729 kg Weight (Calculated Kilograms) 85.7 Weight (Calculated Grams) 07580.0 [place] Body Weight 160 % [place] Body Weight 118 Body Mass Index (BMI) 27.8 Weight Status Overweight GI Symptoms GI Symptoms None Last BM 09/25 x1 Difficult in: None Skin Integrity/Comment: WNL, Intact Current %PO Good (75-100%) Estimated Nutritional Goals BEE in Kcals: Adj wt of IBW Calories/Kcals/Kg 25-30 Kcals Calculated 6692-7788 Protein: Adj wt of IBW Protein g/k.0-1.2 Protein Calculated 80-90 Fluid: ml 5598-6443 ml (25-30 ml/kg) Nutritional Problem 1. Problem Problem No nutrition diagnosis at this time. Etiology N/A Signs/Symptoms: N/A Malnutrition Related to Morbid Obesity Malnutrition related to morbid obesity No Intervention/Recommendation Comments Continue Cardiac diet as tolerated. Expected Outcomes/Goals Expected Outcomes/Goals 1. PO intake to continue to meet >75% of estimated nutritional needs. 2. Monitor PO intake, wt, nutrition related labs, and skin integrity. 3. F/U as low risk in 7-10 days, 10/04-10/07.
[2019-10-03] MEDS: Multivitamin Tab PO SCH (08:17)
--- NOTE | 2019-10-03 18:17 | Progress Notes ---
DATE: 10/03/2019 SUBJECTIVE: Chart reviewed and the patient interviewed. Also discussed the patient's condition with the staff and reviewed records and labs. The patient is still isolative and is still withdrawn. The patient also is still in a depressed mood. Also, talking to himself. He is interacting minimally with others. Otherwise, the patient is compliant with taking his medications with no side effects of medications. ASSESSMENT: The patient is still severely depressed and still needs lots of support. TREATMENT PLAN: Continue current medications and treatment. Also, continue to work on his ineffective coping and his severe level of depression. Also, working on discharge plans and placement issue. JOB# [id number]
[2019-10-04] MEDS: Multivitamin Tab PO SCH (08:48)
--- NOTE | 2019-10-04 13:22 | Internal Medicine Prog Note ---
Internal Medicine Subjective - Subjective Service Date: 10/04/19 Patient seen and examined:: without staff Patient is:: awake Per staff patient has:: no adverse event, no episodes of fall (f) Internal Medicine Objective - Results Recent Labs: Laboratory Last Values POC Glucose 98 MG/DL (70 - 105) 09/24/19 18:08 - Physical Exam Vitals and I&O: Vital Signs Temp 97.6 F 10/03/19 21:00 Pulse 59 10/03/19 21:00 Resp 19 10/04/19 07:33 BP 155/80 10/03/19 21:00 Pulse Ox 98 10/03/19 21:00 Intake & Output 10/03/19 10/04/19 10/04/19 18:59 06:59 18:59 Intake Total 1200 120 Balance 1200 120 Intake: Oral 1200 120 Other: # Voids 4 1 # Bowel Movements 1 0 Active Medications: Current Medications Acetaminophen (Tylenol) 650 mg PO Q4H PRN PRN Reason: Pain (Mild 1-3) Stop: 11/23/19 18:35 Last Admin: 10/03/19 12:13 Dose: 650 mg Hydrocodone Bitart/Acetaminophen ([place] 10 Mg/325 Mg) 1 tab PO Q6H PRN PRN Reason: Pain (Severe 7-10) Stop: 12/01/19 15:12 Last Admin: 10/02/19 16:39 Dose: 1 tab Hydrocodone Bitart/Acetaminophen ([place] 5mg/325mg) 1 tab PO Q6H PRN PRN Reason: Moderate Pain Stop: 12/01/19 15:12 Al Hydrox/Mg Hydrox/Simethicone (Maalox) 30 ml PO Q4HR PRN PRN Reason: GI DISTRESS Stop: 11/23/19 18:35 Aripiprazole (Abilify) 10 mg PO HS FLO; Protocol Stop: 11/25/19 20:59 Last Admin: 10/03/19 20:48 Dose: 10 mg Aripiprazole (Abilify) 10 mg PO DAILY FLO; Protocol Stop: 11/30/19 08:59 Last Admin: 10/04/19 08:48 Dose: 10 mg Escitalopram Oxalate (Lexapro) 10 mg PO HS FLO; Protocol Stop: 11/26/19 20:59 Last Admin: 10/03/19 20:48 Dose: 10 mg Hydrochlorothiazide (Hctz) 25 mg PO DAILY FLO Stop: 12/01/19 15:29 Last Admin: 10/04/19 08:51 Dose: Not Given Ibuprofen (Motrin) 600 mg PO TID FLO Stop: 12/01/19 20:59 Last Admin: 10/04/19 08:48 Dose: 600 mg Lorazepam (Ativan) 0.5 mg PO Q4HR PRN; Protocol PRN Reason: Agitation Stop: 10/24/19 18:35 Last Admin: 09/30/19 16:29 Dose: 0.5 mg Magnesium Hydroxide (Milk Of Magnesia) 30 ml PO HS PRN PRN Reason: Constipation Multivitamins/Vitamin C (Theragran) 1 tab PO DAILY FLO Stop: 11/24/19 08:59 Last Admin: 10/04/19 08:48 Dose: 1 tab Zolpidem Tartrate (Ambien) 5 mg PO HS PRN PRN Reason: Insomnia Stop: 11/23/19 20:02 Last Admin: 09/29/19 22:02 Dose: 5 mg HEENT: NC/AT, PERRLA Neck: Supple Lungs: CTAB Cardiovascular: RRR, Normal S1, Normal S2 Abdomen: soft Extremities: clear, edema Neurological: no change Internal Medicine Assmt/Plan - Assessment Assessment: 1. CAD Hx of PTCA 2. Parkinson's 3. HTN - Plan Plan: continue supportive care continue meds reviewed medical records and discussed with Bárbara Nutritional Asmnt/Malnutr-PDOC - Dietary Evaluation Malnutrition Findings (Please click <Entered> for more info): Nutritional Asmnt/Malnutrition Start: 09/28/19 11: 23 Text: Status: Complete Freq: Protocol: Document 09/28/19 13:49 MARIA A (Rec: 09/28/19 14:00 MARIA A GISSEL-CTXTS -[id number]) Nutritional Asmnt/Malnutrition Patient General Information Nutritional Screening Low Risk Diagnosis Psychosis Pertinent Medical Hx/Surgical Hx HTN, CAD, Parkinsons Subjective Information Pt is a 64-year-old male admitted on 09/23 d/t suicidal ideation. Pt is eating an estimated 88% x3days of meals Per Meal/Nutrition Activity Record. Dietary is currently providing an estimated 1900 kcals and 112 gm Pro, per Pt PO intake this is providing an estimated 1672 kcals and 98gm Pro to meet 88% kcal and 100+ % Pro needs- adequate. Visited pt in room, gathered food preferences. Anthropometrics HT: 59 WT: 189 LB (85.9 kg) BMI: 27.91 (Overweight) ABW: 167 LB (76 kg) GI/ Skin Integrity GI: WNL, Soft, Non-tender BM: 09/25 x1 I/O: 1620/Not Noted Skin: WNL, Intact Nito: 22 Diet Order: Cardiac Estimated Energy Needs: ( Geriatric, ABW) 6017-1495 kcals (25-30 kcals/ kg) 80-90 g Pro (1.0-1.2 g/kg) 1972-3686 ml (25-30 ml/kg) Current Diet Order/ Nutrition Support Cardiac Patient / S.O Can Pertinent Medications Maalox (PRN), MOM (PRN), Theragran Pertinent Labs 09/23: POC Glucose 98 09/22: K 3.5, Glucose 107, Ca 8. 0, AST 56, Hgb/Hct 10.1/31.8 Nutritional Hx/Data Height 1.75 m Height (Calculated Centimeters) 175.3 Current Weight (lbs) 85.729 kg Weight (Calculated Kilograms) 85.7 Weight (Calculated Grams) 17629.0 [place] Body Weight 160 % [place] Body Weight 118 Body Mass Index (BMI) 27.8 Weight Status Overweight GI Symptoms GI Symptoms None Last BM 09/25 x1 Difficult in: None Skin Integrity/Comment: WNL, Intact Current %PO Good (75-100%) Estimated Nutritional Goals BEE in Kcals: Adj wt of IBW Calories/Kcals/Kg 25-30 Kcals Calculated 8850-4729 Protein: Adj wt of IBW Protein g/k.0-1.2 Protein Calculated 80-90 Fluid: ml 6705-0746 ml (25-30 ml/kg) Nutritional Problem 1. Problem Problem No nutrition diagnosis at this time. Etiology N/A Signs/Symptoms: N/A Malnutrition Related to Morbid Obesity Malnutrition related to morbid obesity No Intervention/Recommendation Comments Continue Cardiac diet as tolerated. Expected Outcomes/Goals Expected Outcomes/Goals 1. PO intake to continue to meet >75% of estimated nutritional needs. 2. Monitor PO intake, wt, nutrition related labs, and skin integrity. 3. F/U as low risk in 7-10 days, 10/04-10/07.
--- NOTE | 2019-10-04 19:38 | Progress Notes ---
DATE: SUBJECTIVE: Chart reviewed and the patient interviewed. Also discussed the patient's condition with the staff, and reviewed records and labs. The patient is calmer. He is just anxious and less depressed. The patient also is interacting more, and getting out of his isolation and his room more, also interacting appropriately. The patient denies any thoughts of suicide or homicide. ASSESSMENT: The patient is not depressed or suicidal. TREATMENT PLAN: Planning to discharge the patient today. Outpatient treatment and followup will continue in [facility], who accepted the patient. JOB# [id number]
[2019-10-05 14:05] LABS: CALCIUM SERUM 9.1 mg/dL (8.4-10.2); CREATININE - SERUM 2.04 mg/dL (0.70-1.30); POTASSIUM SERUM 4.4 mmol/L (3.5-5.1)
== END 2019-10-04 15:15 | DRG 885 ==
LOC: GERO 17:16
PROVIDERS: ADMIT Psychiatry & Neurology Psychiatry; ATTEND Psychiatry & Neurology Psychiatry
DX: F32.3 Major depressive disorder, single episode, severe with psychotic features (principal); R45.851 Suicidal ideations; I10 Essential (primary) hypertension; F17.210 Nicotine dependence, cigarettes, uncomplicated; I25.10 Atherosclerotic heart disease of native coronary artery without angina pectoris; G20 Parkinson's disease; M25.562 Pain in left knee
CPT/HCPCS: 36415-UA; 80048-TC; 82948-90; 83036-90; Z7610